=== PATIENT | male | born 1990 | race African-American/Black ===

== ENCOUNTER 2021-12-23 21:28 | Emergency (ER) | payer MEDICAID ==
[~2021-12-23] VITALS: Ht 177.8 cm; Wt 74.8 kg
[2021-12-23 22:11] VITALS: BP 143/94
--- NOTE | 2021-12-23 22:19 | NUR ---
TO BED 7 FOLLOWING TRIAGE
--- NOTE | 2021-12-23 22:43 | NUR ---
MD BARNES AT BEDSIDE
[2021-12-23] MEDS ORDERED: NACL 0.9% 1,000 ML IV ONE (22:45)
[2021-12-23] MEDS ORDERED: LORazepam 1 MG TAB PO ONE (22:45)
--- NOTE | 2021-12-23 22:50 | NUR ---
IV ESTABLIHED 20G RIGHT FA. BLOOD COLLECTED AND HANDED TO LAB
--- NOTE | 2021-12-23 22:56 | NUR ---
31/M BIB MOTHER C/O ANXIETY. PATIENT STATED THAT HE HAS NOT BEEN TAKING HIS MEDS RISPEROL OR REMERON BECAUSE "I DIDNT THINK I NEEDED THEM ANYMORE". MOTHER STATED THAT PATIETN DID METH, PATIENT CONFIRMED METH USE WITH MD. PATIENT IS CALM AND COOPERATIVE, RR EVEN AND UNLABORED. DOESNT APPEAR TO BE IN DISTRESS. PATIENT PLACED IN BED. BED LOW AND LOCKED. ALL NEEDS MET. PMHX BIPOLAR NKA
--- NOTE | 2021-12-23 23:00 | NUR ---
PATIETN UNABLE TO URINATE. RQ WATER AND FLUIDS ARE RUNNING. WILL ATTEMPT TO GO AGAIN.
[2021-12-23 23:07] LABS: BASOPHILS % (AUTO) 0.5 % (0.0-2.0); EOSINOPHILS % (AUTO) 0.3 % (0.0-4.0); HEMATOCRIT 47.5 % (36-52); LYMPHOCYTES # (AUTO) 1.4 K/uL (2.0-11.5); LYMPHOCYTES % (AUTO) 14.3 % (20.5-51.1); MEAN CORPUSCULAR HEMOGLOBIN 29 pg (27-31); MEAN CORPUSCULAR HGB CONC 34 g/dL (33-37); MEAN CORPUSCULAR VOLUME 85.7 fL (80-94); MONOCYTES # (AUTO) 0.8 K/uL (0.8-1.0); MONOCYTES % (AUTO) 7.9 % (1.7-9.3); NEUTROPHILS # (AUTO) 7.8 K/uL (1.8-7.7); PLATELET COUNT (AUTO) 246 K/uL (140-450); RED BLOOD CELL COUNT(AUTO) 5.54 MIL/uL (4.20-6.10); RED CELL DISTRIBUTION WIDTH 13.6 % (11.6-13.7); WHITE BLOOD COUNT (AUTO) 10.1 K/uL (4.8-10.8)
[2021-12-23 23:33] LABS: ALBUMIN 4.5 g/dL (3.4-5.0); ANION GAP 11.3 (8-16); ASPARTATE AMINOTRANSFERASE 20 U/L (15-37); CARBON DIOXIDE 29.8 mmol/L (21-32); CHLORIDE 104 mmol/L (98-107); CREATININE 1.2 mg/dL (0.6-1.3); GFR ARICAN-AMERICAN 90 mL/min (>90); GLUCOSE 91 mg/dL (74-106); POTASSIUM 4.1 mmol/L (3.5-5.1); SODIUM SERUM 141 mmol/L (136-145); TOTAL BILIRUBIN 0.5 mg/dL (0.0-1.0); UREA NITROGEN, BLOOD 16 mg/dL (7-18)
--- NOTE | 2021-12-23 23:35 | NUR ---
AIME AMBULATED TO THE RR
--- NOTE | 2021-12-23 23:40 | NUR ---
URINE COLLECTED AND WALKED TO LAB
--- NOTE | 2021-12-23 23:58 | NUR ---
PATIETN RESTING IN BED COVERED IN BLANKET. RR APPEAR TO BE EVEN AND UNLABORED. DOESNT APPEAR TO BE IN DISTRESS. LIGHT OFF FOR COMFORT. BED LOW AND LOCKED. MICHAEL SIDE RAILS UP ALL NEEDS MET
[2021-12-24 00:24] LABS: BARBITURATE, URINE NEGATIVE ng/ml (NEG <=200)
[2021-12-24 00:25] LABS: BENZODIAZEPINE, URINE NEGATIVE ng/mL (NEG <=200); CANNABINOID, URINE POSITIVE ng/mL (NEG <=50); COCAINE, URINE NEGATIVE ng/mL (NEG <=300); OPIATE, URINE NEGATIVE ng/mL (NEG <=2000); PHENCYCLIDINE SCREEN,URINE POSITIVE ng/mL (NEG <=25)
--- NOTE | 2021-12-24 00:59 | NUR ---
IV removed, catheter intact and site benign. Applied folded 4x4 gauze and tape to stop bleeding.
[2021-12-24 01:00] VITALS: BP 134/62
--- NOTE | 2021-12-24 01:00 | NUR ---
Patient discharged with v/s stable. Written and verbal after care instructions given and explained. Patient verbalized understanding. Ambulatory with steady gait. Advised to follow up with PMD.
--- NOTE | 2021-12-24 01:03 | NUR ---
Chart checked and completed.
== END 2021-12-24 01:00 | disposition home or self-care (01) ==
LOC: MED 21:28
DX: F19.10 Other psychoactive substance abuse, uncomplicated (principal); R53.1 Weakness; F31.9 Bipolar disorder, unspecified; F20.9 Schizophrenia, unspecified; F17.210 Nicotine dependence, cigarettes, uncomplicated; F15.90 Other stimulant use, unspecified, uncomplicated
CPT/HCPCS: 36415; 80053; 80305; 85025; 96360; 99283; G0482; J7030